=== PATIENT | female | born 1970 | race African-American/Black ===

== ENCOUNTER 2017-01-10 18:19 | Emergency (ER) | payer OTHER ==
--- NOTE | ~2017-01-10 | CR72 ---
[facility] A Service of [facility] & [facility] RADIOLOGY TEXT RESULTS PATIENT: YUMI HERNANDEZ LOCATION: [facility] : [birth year] UNIT #: [id number] AGE: [address]: Zhao Song MD SEX: F ORDER DR: [id number] [facility] [address] [place], [place] [address] [id number] E MR#: [id number] Acc #: [id number] NAME: YUMI HERNANDEZ : 1970 SEX: F STUDY DATE/TIME: 01/10/2017 21:57 UNIT: [facility] ROOM: STUDY DESCRIPTION: CR Chest Single View Portable Attending Physician: Neal Song M.D. Ordering Physician: Ed Esvin Thakur M.D. Primary Care Physician: Efrem Calvillo M.D. MEDICAL IMAGING REPORT This report is preliminary unless electronic signature is present EXAM Portable chest INDICATIONS Shortness of breath today and for the past 2 weeks but getting worse over the last day or so. Comparison with 09/12/2009. FINDINGS Lungs are well expanded. No acute infiltrate. Heart size normal. Postop changes of the spine. IMPRESSION No active disease. Dictated by... Jon Latham M.D. THIS IS AN ELECTRONICALLY VERIFIED REPORT Jon Latham M.D. at 01/12/2017 7:28 AM THOMAS/patience TD: 01/11/2017 03:02 JOB #: [id number] MEDICAL IMAGING REPORT Page 1 of 1 COPY
--- NOTE | ~2017-01-10 | EKG ---
PATIENT: YUMI HERNANDEZ UNIT #: [id number] Ventricular Rate: 63 BPM Atrial Rate: 63 BPM P-R Interval: 170 ms QRS Duration: 88 ms Q-T Interval: 428 ms QTC Calculation(Bezet): 437 ms P Julian: 50 degrees Calculated R Julian: 48 degrees Calculated T Julian: 19 degrees Diagnosis Line: Normal sinus rhythm Diagnosis Line: Possible Left atrial enlargement Diagnosis Line: Cannot rule out Anterior infarct , age Diagnosis Line: undetermined Diagnosis Line: Abnormal ECG Diagnosis Line: When compared with ECG of 12-SEP-2009 20:38, Diagnosis Line: T wave inversion now evident in Inferior leads Diagnosis Line: Nonspecific T wave abnormality, worse in Anterior Diagnosis Line: leads Diagnosis Line: Confirmed by DANILO JAIN MD ([id number]) on Diagnosis Line: 01/11/2017 1:31:26 PM INTERPRETING MD: SUSY GREENE
[~2017-01-10 18:19] MED LIST: FEOSOL PO; FOLIC ACID PO; FOLTRATE PO; MYLANTA PO; NEXIUM PO; PROTONIX PO; ZANTAC PO
[2017-01-10 18:56] LABS: BASOPHIL% 0.5 % (0-2.5); EOSINOPHIL# 0.1 X10e3 (0-0.7); EOSINOPHIL% 0.8 % (0.0-7.0); HEMOGLOBIN 11.2 gm/dL (12.0-16.0); LYMPHOCYTE# 2.5 X10e3 (1.0-3.5); LYMPHOCYTE% 30.2 % (17.0-45.0); MEAN CORPUSCULAR HEMOGLOBIN 25.2 PG (28-34); MEAN CORPUSCULAR HGB CONC 31.1 g/dL (30-36); MEAN PLATELET VOLUME 9.9 FL (6.5-11.5); MONOCYTE# 0.6 X10e3 (0-1.0); MONOCYTE% 6.9 % (3.0-12.0); NEUTROPHIL# 5.1 X10e3 (1.5-7.1); NEUTROPHIL% 61.6 % (40-75); PLATELET COUNT 283 X10e3 (140-420); RED BLOOD COUNT 4.45 X10e (3.90-5.30); RED CELL DISTRIBUTION WIDTH 14.4 % (11.0-15.5); WHITE BLOOD COUNT 8.3 X10e3 (4.0-10.5)
[2017-01-10 18:57] LABS: DIFF IND NO
[2017-01-10 19:16] LABS: ALBUMIN SERUM 4.4 g/dL (3.5-5.0); ALKALINE PHOSPHATASE 54 U/L (32-92); ALT (SGPT) 13 U/L (10-40); AST (SGOT) 18 U/L (10-42); BILIRUBIN,TOTAL 0.4 mg/dL (0.2-2.0); BLOOD UREA NITROGEN 11 mg/dL (9-23); BUN/CREATININE RATIO 12.22; CALCIUM SERUM 9.4 mg/dL (8.4-10.2); CARBON DIOXIDE 23 mmol/L (22-31); CHLORIDE 102 mmol/L (100-111); CREATININE SERUM 0.9 mg/dL (0.6-1.4); GLOM FILT RATE Estimated 88.9 mL/min (>60); GLUCOSE FASTING 99 mg/dL (70-110); POTASSIUM 3.5 mmol/L (3.5-5.1); SODIUM 134 mmol/L (135-145)
[2017-01-10 19:17] LABS: BILIRUBIN, DIRECT <0.1 mg/dL (0.0-0.2); BILIRUBIN,INDIRECT 0.3 mg/dL (0.0-0.9)
[2017-01-10 19:25] LABS: POC - CKMB 1.3 ng/mL (0.0-7.9); POC - TROPONIN <0.05 ng/mL (<=0.05)
[2017-01-10 21:38] LABS: POC - CKMB <1.0 ng/mL (0.0-7.9); POC - TROPONIN <0.05 ng/mL (<=0.05)
== END 2017-01-10 23:45 | disposition home or self-care (01) ==
LOC: CED 18:19
PROVIDERS: Emergency Medicine
DX: R07.89 Other chest pain (principal); K21.9 Gastro-esophageal reflux disease without esophagitis; I10 Essential (primary) hypertension
CPT/HCPCS: 36415; 71010; 80048; 80076; 82553; 84484; 84703; 85025; 93005; 99284